=== PATIENT | female | born 1985 | race Caucasian/White ===

== ENCOUNTER 2016-09-26 03:50 | Inpatient (IN) | payer OTHER ==
[~2016-09-26] VITALS: Ht 154.9 cm; Wt 77.1 kg
[2016-09-26 10:57] LABS: ABSOLUTE BASOPHIL COUNT 0 /CUMM (0.0-0.2); ABSOLUTE EOSINOPHIL COUNT 0.1 /CUMM (0.0-0.7); ABSOLUTE GRANULOCYTE CT 8.3 /CUMM (1.4-6.5); ABSOLUTE LYMPH COUNT 1.5 /CUMM (1.2-3.4); ABSOLUTE MONOCYTE COUNT 0.8 /CUMM (0.10-0.60); BASOPHIL % 0.3 % (0.0-2.0); EOSINOPHIL % 0.8 % (0-5); GRANULOCYTE % 76.9 % (42.2-75.2); HEMATOCRIT 36.7 % (37-47); MEAN CORPUSCULAR HGB 32.3 PG (27.0-31.0); MEAN CORPUSCULAR HGB CONC 34.3 G/DL (33.0-37.0); PLATELET COUNT 151 /CUMM (130-400); WHITE BLOOD CELL COUNT 10.7 /CUMM (4.8-10.8)
[2016-09-26] MEDS ORDERED: PRENATAL TABLE1 EAC2 PO (11:39)
--- NOTE | 2016-09-26 20:51 | History & Physical ---
General Information and HPI MD Statement: I have seen and personally examined BRITNEY SYED and documented this H&P. The patient is a 31 year old female at [39] weeks and [1] days gestation who presented with a chief complaint of [IOL]. Source of Information: patient, old records History of Present Illness: 30yo edc 10/03/16 by [facility] for IOL. Rh negative rec'd RhoGam 08/01. Poor Pierce score. complete w/ . 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 EENTM: Reports: no symptoms. Cardiovascular: Reports: no symptoms. Respiratory: Reports: no symptoms. GI: Reports: no symptoms. Genitourinary: Reports: no symptoms. Musculoskeletal: Reports: no symptoms. Skin: Reports: no symptoms. Neurological/Psychological: Reports: no symptoms. Hematologic/Endocrine: Reports: no symptoms. Immunologic/Allergic: Reports: no symptoms. All Other Systems: Reviewed and Negative Exam & Diagnostic Data Last 24 Hrs of Vital Signs/I&O Intake & Output 09/26 1600 09/26 0800 09/26 0000 Intake Total Output Total Balance Patient 170 lb Weight Obstetric Exam Wgt Gained During : 35 Pelvimetry: gynecoid Dilation (cm): 0 Effacement (%): 0 Station: -3 Membranes: intact Fluid: unknown Fundal Height (cm): 40 Multiple Gestation? No Contractions: occ #1 - FHR Baseline: 125 Category: 1 Estimated Weight: 7 Presentation: cephalic Patient for Induction? Yes Pierce Score Pierce Score Response Value Cervix Position: posterior 0 Cervix Consistency: medium 1 Cervix Effacement: 0-30% 0 Cervix Dilation: closed 0 Cervix Station: -3 0 Total 1 Labs Blood Type & Rh: O neg Antibody Screen: neg Hct/Hgb & Platelets #1: Hct/Hgb & Platelets #2: Rubella: imm VDRL #1: nr VDRL #2: nr HbsAg: neg HIV #1: neg HIV #2 neg 1 Hr P Group B Strep: neg Initial Ultrasound: wnl Anatomy Ultrasound: wnl Ultrasound for EFW: 6-1 Genetic Testing: neg Last 24 Hrs of Labs/Katrhikeyan: Laboratory Tests 09/26/16 2017: Total Beta HCG NEGATIVE 09/26/16 1145: Urine Color YEL, Urine Clarity CLEAR, Urine pH 7.0, Ur Specific [place] 1.015, Urine Protein NEG, Urine Ketones 15 H, Urine Nitrite NEG, Urine Bilirubin NEG, Urine Urobilinogen 0.2, Ur Leukocyte Esterase NEG, Ur Microscopic EXAM NOT REQUIRED, Urine Hemoglobin NEG, Urine Glucose NEG 09/26/16 1015: CBC w Diff NO MAN DIFF REQ, RBC 3.90 L, MCV 94.0, MCH 32.3 H, RDW 14.0, MPV 9.0, Gran % 76.9 H, Lymphocytes % 14.3 L, Monocytes % 7.7, Eosinophils % 0.8, Basophils % 0.3, Absolute Granulocytes 8.3 H, Absolute Lymphocytes 1.5, Absolute Monocytes 0.8 H, Absolute Eosinophils 0.1, Absolute Basophils 0, PUBS MCHC 34.3 ITS Data ITS Data Unobtainable at this time Assessment/Plan Assessment/Plan: IOL 39+ weeks poor pierce score Misoprostil cervical ripening followed by pitocin induction As Ranked By This Provider Problem List: 1. Core Measures/Miscellaneous Venous Thromboembolism VTE Risk Factors: / VTE Contraindications: No Contraindications VTE Diagnosis: No Beta Timmy Is Beta Timmy a Home Med? No Antibiotics Is Patient on Antibiotics? No
--- NOTE | 2016-09-27 10:11 | PN- Obstetrical ---
Subjective Subjective: C/O OF CTX Objective Last 24 Hrs of Vital Signs/I&O PER CHART Physical Exam: THIN WF IN NAD ABD SOFT NT [id number] EXT+1 EDEMA Obstetric Exam Dilation (cm): 2 Effacement (%): 90 Station: 0 Membranes: AROM Fluid: bloody show Multiple Gestation? No Contractions: Q 2 #1 - FHR Baseline: 125 Category: 1 Estimated Weight: 7 Presentation: cephalic Assessment/Plan Assessment/Plan ASSESS TERM EARLY LABOR PLAN CONT EPIDURAL
--- NOTE | 2016-09-27 13:17 | PN- Obstetrical ---
Subjective Subjective: NO COMPLAINTS Objective Last 24 Hrs of Vital Signs/I&O PER CHART ABD SOFT NT Obstetric Exam Dilation (cm): 9 Effacement (%): 90 Station: 0 Membranes: AROM Fluid: bloody show Multiple Gestation? No Contractions: Q 3MINUTES Infant #1 - FHR Baseline: 125 Category: 1 Estimated Weight: 7 Presentation: cephalic Assessment/Plan Assessment/Plan ASSESS TERM LABOR PLAN OBSERVE FOR
--- NOTE | 2016-09-27 16:55 | Labor & Delivery Summary ---
Delivery Summary Vaginal Delivery: Vaginal: vertex : : vacuum (PATIENT BEEN PUSHING WITH VARI) Episiotomy/Lacerations: Type: Right medial lateral Repair: 3 oversewn in layers Anesthesia: Epidural epidural and local block Placenta: Placenta: spontanteous, normal, 3 vessel, CORD AROUND BODY 1 AND A 30% ABRUPTION WITH CLOT CLINGING TO THE PLACENTA Additional Comments: Vacuum-assisted vaginal delivery secondary to heavy bleeding bradycardia and persistent variables viable male infant correct open the with senior advisor present cord around body not reducible clamped times to placenta delivered by continuous cord traction over right mediolateral intact right mediolateral repaired in layers with 30 under local and epidural rectum and cervix free of sutures post repair
[2016-09-28 09:20] LABS: ABSOLUTE BASOPHIL COUNT 0 /CUMM (0.0-0.2); ABSOLUTE EOSINOPHIL COUNT 0.1 /CUMM (0.0-0.7); ABSOLUTE GRANULOCYTE CT 13.6 /CUMM (1.4-6.5); ABSOLUTE LYMPH COUNT 1.8 /CUMM (1.2-3.4); ABSOLUTE MONOCYTE COUNT 1.4 /CUMM (0.10-0.60); BASOPHIL % 0 % (0.0-2.0); EOSINOPHIL % 0.4 % (0-5); GRANULOCYTE % 80.5 % (42.2-75.2); MEAN CORPUSCULAR HGB 31.8 PG (27.0-31.0); MEAN CORPUSCULAR HGB CONC 33.1 G/DL (33.0-37.0); MEAN PLATELET VOLUME 9.1 FL (7.4-10.4); PLATELET COUNT 140 /CUMM (130-400); RBC DISTRIBUTION WIDTH 14.3 % (11.5-14.5); RED BLOOD CELL CT 3.08 /CUMM (4.20-5.40)
[2016-09-28 09:38] LABS: HEMATOCRIT 29.6 % (37-47); WHITE BLOOD CELL COUNT 16.9 /CUMM (4.8-10.8)
[2016-09-29] MEDS ORDERED: IBUPROFEN800 M1 PO (07:52)
== END 2016-09-29 11:00 | DRG 774 ==
LOC: CBCO 03:50 → GNO 08:00 → CBCO 08:00 → GNO 20:22
PROVIDERS: Obstetrics & Gynecology; ADMIT Specialist
PROC: 10D07Z6 Extraction of Products of Conception, Vacuum, Via Natural or Artificial Opening (ICD-10-PCS; principal; 2016-09-27)
PROC: 0W8NXZZ Division of Female Perineum, External Approach (ICD-10-PCS; principal; 2016-09-27)
PROC: 3E033VJ Introduction of Other Hormone into Peripheral Vein, Percutaneous Approach (ICD-10-PCS; 2016-09-27)
DX: O75.89 Other specified complications of labor and delivery (principal); O45.93 Premature separation of placenta, unspecified, third trimester; O69.89X0 Labor and delivery complicated by other cord complications, not applicable or unspecified; Z3A.39 39 weeks gestation of pregnancy; Z37.0 Single live birth; O76 Abnormality in fetal heart rate and rhythm complicating labor and delivery
CPT/HCPCS: GNOP; GNOS; 81003; 86920; 86922; 88307; G0378; G0463; J7120